=== PATIENT | female | born 1960 | race Caucasian/White ===

== ENCOUNTER 2022-06-14 11:36 | Emergency (ER) | payer MEDICAID ==
[~2022-06-14] VITALS: Ht 167.6 cm; Wt 80.0 kg
[2022-06-14] MEDS ORDERED: HYDROCODONE/ACETAMINOPHEN 5/325MG TABLET PO ONE (16:15)
[2022-06-14] MEDS ORDERED: MORPHINE SULFATE 4 MG/ML CPJ (NOT FOR IM USE) IV STA (16:19)
[2022-06-14] MEDS ORDERED: ONDANSETRON HCL 4MG/2ML INJ IV STA (16:19)
[2022-06-14 16:36] VITALS: BP 171/86
[2022-06-14 17:02] LABS: HEMATOCRIT. 39.8 % (36.0-48.0); HEMOGLOBIN. 13.5 g/dL (12.0-16.0); MEAN CORPUSCULAR HEMOGLOBIN 30.7 pg (28.0-32.0); MEAN CORPUSCULAR VOLUME 90.7 fL (81.0-99.0); MEAN PLATELET VOLUME 8.3 fl (7.4-10.4); PLATELET 289 x1000/uL (130-400); RED BLOOD CELL COUNT 4.39 mill/uL (4.2-5.4); RED CELL DISTRIBUTION WIDTH 14.3 % (11.6-14.6)
[2022-06-14 17:08] LABS: CHLORIDE 104 mEq/L (98-107)
[2022-06-14 19:05] LABS: PARTIAL THROMBOPLASTIN TIME 22.9 sec (23.4-31.0); PROTHROMBIN TIME 10.9 sec (9.6-11.0)
[2022-06-14] MEDS ORDERED: IOHEXOL-300 100 ML BOTTLE ONE (19:15)
[2022-06-14] MEDS ORDERED: OXYC-100 MT (19:24)
[2022-06-14] MEDS ORDERED: IBUP-2028 MT (19:24)
[2022-06-14 19:37] LABS: PLATELET ESTIMATE NORMAL
[2022-06-15] MEDS ORDERED: OXYC-100 MT (13:48)
[2022-06-15] MEDS ORDERED: IBUP-2028 MT (13:48)
== END 2022-06-14 21:03 | disposition home or self-care (01) ==
LOC: ER 11:46
DX: S39.012A Strain of muscle, fascia and tendon of lower back, initial encounter (principal); S16.1XXA Strain of muscle, fascia and tendon at neck level, initial encounter; R10.9 Unspecified abdominal pain; S32.028A Other fracture of second lumbar vertebra, initial encounter for closed fracture; S32.058A Other fracture of fifth lumbar vertebra, initial encounter for closed fracture; E78.00 Pure hypercholesterolemia, unspecified; I10 Essential (primary) hypertension; V43.62XA Car passenger injured in collision with other type car in traffic accident, initial encounter; Y93.89 Activity, other specified; Y92.410 Unspecified street and highway as the place of occurrence of the external cause
CPT/HCPCS: 36415; 72125; 72131; 74177; 80048; 80076; 85025; 85610; 85730; 96374; 96375; 99285; J2270; J2405; Q9967